=== PATIENT | female | born 1975 ===

== ENCOUNTER 2022-07-29 13:59 | Emergency (ER) | payer OTHER ==
[~2022-07-29] VITALS: Ht 160 cm; Wt 94.3 kg
[~2022-07-29 13:59] MED LIST: COZAAR100 MG; PROVENTIL S1 ML/5 MG; SINGULAIR10 MG
[2022-07-29] MEDS ORDERED: NORVASC5 MG PO (14:09)
[2022-07-29] MEDS ORDERED: CARDURA1 MG (14:09)
== END 2022-07-29 20:32 | disposition home or self-care (01) ==
LOC: ER 13:59
DX: J10.1 Influenza due to other identified influenza virus with other respiratory manifestations (principal); Z20.822 Contact with and (suspected) exposure to COVID-19